=== PATIENT | male | born 1950 | race Caucasian/White ===

== ENCOUNTER 2017-04-01 14:27 | Emergency (ER) | payer MEDICARE, OTHER ==
[2017-04-01 14:33] VITALS: BP 116/83; RESP 18; O2SAT 97
[2017-04-01] MEDS ORDERED: Sodium Chloride 0.9% 1,000 ML IV STA (14:39)
--- NOTE | 2017-04-01 15:28 | ED PDOC ---
HPI: Back Time Seen by Provider: 04/01/17 14:38 Chief Complaint (Nursing): Back Pain Chief Complaint (Provider): backpain History Per: Patient Additional Complaint(s): 66yo M in ER for eval of acute lower back pain started yesterday without injury with associated fever chills and burning sensation with urination without vomiting headache dizziness hematuira rash abd pain chest pain or Shortness of breath Past Medical History Reviewed: Historical Data, Nursing Documentation, Vital Signs Vital Signs: Last Vital Signs Temp 102 F H 04/01/17 14:31 Pulse 114 H 04/01/17 14:31 Resp 18 04/01/17 14:31 BP 116/83 04/01/17 14:31 Pulse Ox 97 04/01/17 14:31 - Medical History PMH: No Chronic Diseases - Family History Family History: States: No Known Family Hx - Home Medications Home Medications: Ambulatory Orders Medication Instructions Recorded Ciprofloxacin [Cipro] 250 mg PO BID #14 tab 04/01/17 Tamsulosin HCl [Flomax] 0.4 mg PO DAILY #12 cap.er.24h 04/01/17 - Allergies Allergies/Adverse Reactions: Allergies Allergy/AdvReac Type Severity Reaction Status Date / Time No Known Allergies Allergy Verified 04/01/17 14:30 Review of Systems ROS Statement: Except As Marked, All Systems Reviewed And Found Negative Musculoskeletal: Positive for: Back Pain Physical Exam - Reviewed Nursing Documentation Reviewed: Yes Vital Signs Reviewed: Yes - Physical Exam Appears: Positive for: Non-toxic, No Acute Distress, Uncomfortable Head Exam: Positive for: ATRAUMATIC, NORMAL INSPECTION, NORMOCEPHALIC Skin: Positive for: Normal Color, Warm Cardiovascular/Chest: Positive for: Regular Rate, Rhythm Respiratory: Positive for: CNT, Normal Breath Sounds Gastrointestinal/Abdominal: Positive for: Normal Exam, Bowel Sounds, Soft. Negative for: Tenderness Back: Positive for: Normal Inspection, Other (no lesions no ertyehma). Negative for: L CVA Tenderness, R CVA Tenderness, Vertebral Tenderness Extremity: Positive for: Normal ROM Neurologic/Psych: Positive for: Alert, Oriented - Laboratory Results Result Diagrams: 04/01/17 15:59 04/01/17 15:59 Urine dip results: Positive for: Blood, Nitrate, Ketones - ECG O2 Sat by Pulse Oximetry: 97 - CT Scan/US ct abd Other Rad Studies (CT/US): Radiology Report Reviewed (NAD) - Progress ED Course And Treament: while in ER-pt unable to urinate despite 1 fluids bolus and PO intake of fluids. will do bladder scan to assess if pt is retaining. Orders Category Date Time Status ABD & PELVIS IV CONTRAST ONLY [CT] Stat CT 04/01/17 14:50 Ordered ELECTROCARDIOGRAM Stat Cardiology 04/01/17 14:39 Ordered COMP METABOLIC PANEL Stat Chem 04/01/17 14:39 Uncollected Lactic Acid [LACT ACID, PLASMA] Stat Chem 04/01/17 15:19 Uncollected EKG-ED [EDNURTX] STAT ED Care 04/01/17 14:40 Active CBC (WITH DIFFERENTIAL) Stat LUCY 04/01/17 14:39 Uncollected Acetaminophen [Tylenol 325mg tab] Med 04/01/17 14:39 Discontinued 650 mg PO STAT STA Ketorolac [Toradol] Med 04/01/17 14:39 Discontinued 30 mg IVP STAT STA Sodium Chloride 0.9% 1,000 ml Med 04/01/17 14:39 Active IV 1,000 mls/hr BLOOD CULTURE Stat Micro 04/01/17 14:39 Uncollected URINE CULTURE Stat Micro 04/01/17 14:39 Uncollected URINALYSIS Stat URINALYSIS 04/01/17 14:39 Uncollected Medical Decision Making Medical Decision Making: labs show elevated WBC, remaining labs are normal. elevated BUN-may indicated dehydration. normal Cr. PT received fluid bolus. UDip: blood, ketones-may indicate a passing of a renal stone pt will be treat with abx and flomax advised strongly to f.u with urologist. VS improved while in ED and pain controlled in ED. Temp Pulse Resp BP Pulse Ox 99.9 F H 83 18 116/83 97 04/01/17 17:10 04/01/17 17:10 04/01/17 14:31 04/01/17 14:31 04/01/17 18:43 04/01/17 04/01/17 04/01/17 15:59 15:59 15:59 WBC 14.7 H RBC 5.19 Hgb 14.1 Hct 43.2 MCV 83.2 MCH 27.2 MCHC 32.7 L RDW 16.2 H Plt Count 164 MPV 9.8 Neut % (Auto) 93.0 H Lymph % (Auto) 2.4 L [place] % (Auto) 4.3 Eos % (Auto) 0.0 Baso % (Auto) 0.3 Neut # 13.7 H Lymph # 0.4 L [place] # 0.6 Eos # 0.0 Baso # 0.0 Neutrophils % (Manual) 87 H Band Neutrophils % 4 H Lymphocytes % (Manual) 4 L Monocytes % (Manual) 5 Platelet Estimate Normal Large Platelets Present Anisocytosis (manual) Slight Sodium 139 Potassium 4.0 Chloride 102 Carbon Dioxide 25 Anion Gap 16 BUN 23 H Creatinine 1.4 Est GFR ( Amer) > 60 Est GFR (Non-Af Amer) 50 Random Glucose 120 H Lactic Acid 2.0 Calcium 9.4 Total Bilirubin 0.7 AST 21 ALT 33 Alkaline Phosphatase 65 Total Protein 7.9 Albumin 4.4 Globulin 3.5 Albumin/Globulin Ratio 1.2 Disposition - Clinical Impression Clinical Impression: Renal colic - Patient ED Disposition Is Patient to be Admitted: No Counseled Patient/Family Regarding: Studies Performed, Diagnosis, Need For Followup, Rx Given - Disposition Referrals: Saúl Rose Jr., MD [Staff Provider] - [facility] [Outside] [facility] [Outside] Disposition: Routine/Home Disposition Time: 19:55 Condition: STABLE Prescriptions: Ciprofloxacin [Cipro] 250 mg PO BID #14 tab Tamsulosin HCl [Flomax] 0.4 mg PO DAILY #12 cap.er.24h Instructions: Renal Colic (ED) Forms: [employer] ([place])
[2017-04-01 16:06] LABS: BASO % 0.3 % (0.0-2.0); HEMATOCRIT 43.2 % (35.0-51.0); LYMPH # 0.4 K/uL (1.0-4.3); LYMPH % 2.4 % (20.0-40.0); MEAN CELL VOLUME 83.2 fl (80.0-94.0); MEAN CORPUSCULAR HEMOGLOBIN 27.2 pg (27.0-31.0); MEAN CORPUSCULAR HGB CONC 32.7 g/dL (33.0-37.0); MEAN PLATELET VOLUME 9.8 fl (7.2-11.7); MONO # 0.6 K/uL (0.0-0.8); MONO % 4.3 % (0.0-10.0); NEUT # 13.7 K/uL (1.8-7.0); NRBC % 0.1 % (0.0-0.0); PLATELET COUNT 164 K/uL (130-400); RED CELL DISTRIBUTION WIDTH 16.2 % (11.5-14.5); WHITE BLOOD COUNT 14.7 K/uL (4.8-10.8)
[2017-04-01 16:33] LABS: ALB/GLOB RATIO 1.2 (1.0-2.1); ALKALINE PHOSPHATASE 65 U/L (38-126); ALT/SGPT 33 U/L (21-72); AST/SGOT 21 U/L (17-59); BILIRUBIN,TOTAL 0.7 mg/dl (0.2-1.3); BLOOD UREA NITROGEN 23 mg/dl (9-20); CALCIUM 9.4 mg/dL (8.4-10.2); CARBON DIOXIDE 25 mmol/L (22-30); CHLORIDE 102 mmol/L (98-107); GFR AFRICAN-AMERICAN > 60; GLUCOSE,RANDOM 120 mg/dL (75-110); SODIUM 139 mmol/l (132-148); TOTAL PROTEIN 7.9 G/DL (6.3-8.2)
[2017-04-01] MEDS ORDERED: Iohexol 300 100 ML IJ ONE (17:03)
[2017-04-01] MEDS ORDERED: Sodium Chloride 0.9% 50 ML IV ONE (17:03)
--- NOTE | 2017-04-01 17:35 | CT ---
PROCEDURE: CT Abdomen and Pelvis with contrast HISTORY: back pain with fever COMPARISON: None. TECHNIQUE: Contrast dose: 100 mL Omnipaque three hundred. Radiation dose: Total exam DLP = 1119.02 mGy-cm. This CT exam was performed using one or more of the following dose reduction techniques: Automated exposure control, adjustment of the mA and/or kV according to patient size, and/or use of iterative reconstruction technique. FINDINGS: LOWER THORAX: No evidence of acute pathology at the lung bases. LIVER: Low-attenuation 1.5 centimeter lesion at the liver dome may represent benign cyst measures fluid density. Otherwise the liver demonstrate homogeneous enhancement. GALLBLADDER AND BILE DUCTS: Unremarkable. PANCREAS: Unremarkable. No gross lesion or ductal dilatation. SPLEEN: Unremarkable. ADRENALS: Unremarkable. No mass. KIDNEYS AND URETERS: Unremarkable. No hydronephrosis. No solid mass. VASCULATURE: Unremarkable. No aortic aneurysm. BOWEL: Unremarkable. No obstruction. No gross mural thickening. Scattered colonic diverticulosis are seen without CT evidence of diverticulitis. Patient status post prior gastric sleeve surgery. APPENDIX: No evidence of appendicitis. PERITONEUM: Unremarkable. No free fluid. No free air. LYMPH NODES: Unremarkable. No enlarged lymph nodes. BLADDER: The urinary bladder is not distended therefore cannot be evaluated. REPRODUCTIVE: Unremarkable. BONES: No evidence of acute fracture or destructive bony lesion. Large osteophyte disc bulge complex noted at L5-S1. No evidence of fluid collection at the paraspinal region. OTHER FINDINGS: None. IMPRESSION: No evidence of acute pathology in the abdomen and pelvis. Severe degenerative changes and large osteophyte disc bulge complex noted at L5-S1.
[2017-04-01 17:37] LABS: NEUTROPHIL 87 % (42-75); TOTAL CELLS COUNTED 100
[2017-04-01 17:38] LABS: LARGE PLATELETS PRESENT
[2017-04-01 19:40] VITALS: PULSE 83; TEMP 99.9
[2017-04-01 20:18] LABS: RBC URINE 4 /hpf (0-3); URINE BILIRUBIN NEGATIVE (NEGATIVE); URINE BLOOD NEGATIVE (NEGATIVE); URINE COLOR AMBER (YELLOW); URINE GLUCOSE (UA) NEG (Normal); URINE KETONE NEGATIVE (NEGATIVE); URINE LEUKOCYTE ESTERASE NEG Leu/uL (Negative); URINE PROTEIN 100 mg/dL (NEGATIVE); URINE UROBILINOGEN 0.2-1.0 mg/dL (0.2-1.0); WBC URINE 5 /hpf (0-5)
== END 2017-04-01 20:45 | disposition home or self-care (01) ==
LOC: H.ER 14:27
DX: N23 Unspecified renal colic (principal)
CPT/HCPCS: 74177; 80053; 81003; 83605; 85025; 87040; 87086; 87149; 87181; 87205; 96374; 99282; J1885; J7040; Q9967

== ENCOUNTER 2017-04-03 13:10 | Observation (INO) | payer MEDICARE, OTHER ==
--- NOTE | 2017-04-03 13:34 | ED PDOC ---
HPI: Back Time Seen by Provider: 04/03/17 13:22 Chief Complaint (Nursing): Abnormal Labs History Per: Patient Onset/Duration Of Symptoms: Days (2) Current Symptoms Are (Timing): Still Present Quality Of Discomfort: Unable To Describe Severity: Moderate Pain Scale Rating Of: 3 Previous Symptoms: Back Pain Associated Symptoms: None Exacerbating Factor(s): Movement Additional Complaint(s): Low Back pain, non-radiating assoc with fever. seen here 2days ago, CT bad neg. Blood c&s positive for staph. Pt denies fever or chills today. denies cough or urinary sxs. Past Medical History Vital Signs: Last Vital Signs Temp 98.1 F 04/03/17 13:15 Pulse 95 H 04/03/17 13:15 Resp 18 04/03/17 13:15 BP 142/82 04/03/17 13:15 Pulse Ox 98 04/03/17 13:15 - Medical History PMH: No Chronic Diseases - Family History Family History: States: Unknown Family Hx - Home Medications Home Medications: Ambulatory Orders Medication Instructions Recorded Ciprofloxacin [Cipro] 250 mg PO BID #14 tab 04/01/17 Tamsulosin HCl [Flomax] 0.4 mg PO DAILY #12 cap.er.24h 04/01/17 - Allergies Allergies/Adverse Reactions: Allergies Allergy/AdvReac Type Severity Reaction Status Date / Time No Known Allergies Allergy Verified 04/03/17 13:48 Review of Systems ROS Statement: Except As Marked, All Systems Reviewed And Found Negative Constitutional: Positive for: Fever, Chills Respiratory: Negative for: Cough Genitourinary Male: Negative for: Dysuria, Frequency Musculoskeletal: Positive for: Back Pain Physical Exam - Reviewed Nursing Documentation Reviewed: Yes Vital Signs Reviewed: Yes - Physical Exam Appears: Positive for: Non-toxic, No Acute Distress Head Exam: Positive for: ATRAUMATIC, NORMAL INSPECTION, NORMOCEPHALIC Skin: Positive for: Normal Color, Warm, DRY Eye Exam: Positive for: EOMI, Normal appearance, PERRL ENT: Positive for: Normal ENT Inspection Neck: Positive for: Normal, Painless ROM Cardiovascular/Chest: Positive for: Regular Rate, Rhythm Respiratory: Positive for: CNT, Normal Breath Sounds Gastrointestinal/Abdominal: Positive for: Normal Exam, Bowel Sounds, Soft Back: Positive for: Normal Inspection. Negative for: L CVA Tenderness, R CVA Tenderness Extremity: Positive for: Normal ROM Neurologic/Psych: Positive for: Alert, Oriented. Negative for: Motor/Sensory Deficits - Laboratory Results Result Diagrams: 04/03/17 13:40 04/03/17 13:40 - ECG O2 Sat by Pulse Oximetry: 98 Disposition - Clinical Impression Clinical Impression: Bacteremia - Patient ED Disposition Is Patient to be Admitted: Yes - Disposition Disposition Time: 14:27 Condition: FAIR Forms: [employer] ([place]ic) - Pt Status Changed To: Hospital Disposition Of: Observation - POA Present On Arrival: None
[2017-04-03 14:00] LABS: VENOUS BLOOD GAS BASE EXCESS 0.2 mmol/L (0.0-2.0); VENOUS BLOOD GAS PCO2 33 mmHg (40-60); VENOUS BLOOD PH 7.46 (7.32-7.43)
[2017-04-03 14:12] LABS: BASO % 0.1 % (0.0-2.0); HEMATOCRIT 38.9 % (35.0-51.0); LYMPH # 0.4 K/uL (1.0-4.3); LYMPH % 4.7 % (20.0-40.0); MEAN CELL VOLUME 82.4 fl (80.0-94.0); MEAN CORPUSCULAR HEMOGLOBIN 27.4 pg (27.0-31.0); MEAN CORPUSCULAR HGB CONC 33.3 g/dL (33.0-37.0); MEAN PLATELET VOLUME 10.4 fl (7.2-11.7); MONO # 0.6 K/uL (0.0-0.8); MONO % 7.6 % (0.0-10.0); NEUT # 6.5 K/uL (1.8-7.0); NEUT % 87.6 % (50.0-75.0); RED CELL DISTRIBUTION WIDTH 16.7 % (11.5-14.5); WHITE BLOOD COUNT 7.4 K/uL (4.8-10.8)
[2017-04-03 14:22] LABS: ALB/GLOB RATIO 1.1 (1.0-2.1); ALKALINE PHOSPHATASE 56 U/L (38-126); ALT/SGPT 43 U/L (21-72); AST/SGOT 26 U/L (17-59); BILIRUBIN,TOTAL 0.5 mg/dl (0.2-1.3); BLOOD UREA NITROGEN 26 mg/dl (9-20); CARBON DIOXIDE 23 mmol/L (22-30); CHLORIDE 103 mmol/L (98-107); GFR AFRICAN-AMERICAN > 60; GLUCOSE,RANDOM 128 mg/dL (75-110); POTASSIUM 3.8 MMOL/L (3.6-5.0); SODIUM 137 mmol/l (132-148)
--- NOTE | 2017-04-03 14:23 | CP.PCM.HP ---
History of Present Illness - History of Present Illness History of Present Illness: Chief Complaint: called by ER for positive blood cultures HPI: 66M no past medical history presented two days ago to the emergency room for a 1 -day hx of mod-severe sharp worsening back pain likely secondary to degenerative changes and osteophyte L5-S1. At that time pt urine and blood cultures evaluated, urine neg, blood cultures were positive for staph aureus and was called back to come to ER. Pt denies any URI symptoms, urinary symptoms , abdominal pain, diarrhea, headache, no stigmata of endocarditis or clinical sx of pericarditis or myocarditis, CT abd neg, and is afebrile. WBC was 14.7 with 4 bands 2 days ago. Pt was discharged on Cipro. Repeat blood cultures obtained in ER prior to administration of Vancomycin. Continues to be afebrile, lactate 1.6. HD stable, NAD. Repeat blood cultures, cover with Vancomycin, monitor for fever, leukocytosis. ROS: as per HPI, all other systems reviewed and negative by me PMH: denies PSH: gastic sleeve Dec 2016 Family History: denies Social History: denies tobacco, ETOH, illicit drug use Home Medications: as below Allergies: NKDA FULL CODE Surrogate Decision Maker: , Susan Vivar [phone] Vitals reviewed Constitutional- morbidly obese, cooperative, awake, alert. Head- NCAT, PERRL Eye- PERRL, normal accommodation ENT- normal exam, MMM. Neck- normal inspection, supple, no JVD Respiratory- CTAB, no wheezes rales rhonchi Cardiovascular- RRR, +S1, +S2 no MRG GI/Abdominal- normal bowel sounds, soft Skin- warm, dry Extremities Exam- normal capillary refill, normal inspection Neurological Exam- alert, oriented Psych- normal mood, normal affect Labs: 04/03/17 13:40 04/03/17 13:40 Imaging Studies: CT ABD PELVIS neg 2 days ago Assessment and Plan: 66M no past medical history presented two days ago to the emergency room for a 1 -day hx of mod-severe sharp worsening back pain likely secondary to degenerative changes and osteophyte L5-S1. At that time pt urine and blood cultures evaluated, urine neg, blood cultures were positive for staph aureus and was called back to come to ER. Pt denies any URI symptoms, urinary symptoms , abdominal pain, diarrhea, headache, no stigmata of endocarditis or clinical sx of pericarditis or myocarditis, CT abd neg, and is afebrile. WBC was 14.7 with 4 bands 2 days ago. Pt was discharged on Cipro. Repeat blood cultures obtained in ER prior to administration of Vancomycin. Continues to be afebrile, lactate 1.6. HD stable, NAD. Repeat blood cultures, cover with Vancomycin, monitor for fever, leukocytosis. Bacteremia blood cx + staph aureus pt febrile 2 days ago with wbc 14.7 bands 4 today no WBC and afebrile, was sent home on Cipro ER visit 2 days ago repeat BCx2, monitor for fever, WBC pt denies URI sx, urinary sx, abd pain, diarrhea, stigmata of endocarditis, no headache or malaise or subjective fevers cover with Vancomycin 1 gm q12H Back Pain CT + degenerative changes L5-S1 Ibuprofen VTE ppx Lovenox Present on Admission - Present on Admission Any Indicators Present on Admission: No Past Patient History - Past Social History Smoking Status: Never Smoked - PSYCHIATRIC Hx Substance Use: No - ANESTHESIA Hx Anesthesia: No Meds Allergies/Adverse Reactions: Allergies Allergy/AdvReac Type Severity Reaction Status Date / Time No Known Allergies Allergy Verified 04/03/17 13:48 Results - Vital Signs Recent Vital Signs: Last Vital Signs Temp 98.1 F 04/03/17 13:15 Pulse 95 H 04/03/17 13:15 Resp 18 04/03/17 13:15 BP 142/82 04/03/17 13:15 Pulse Ox 98 04/03/17 13:36 - Labs Result Diagrams: 04/03/17 13:40 04/03/17 13:40 Labs: Laboratory Results - last 24 hr 04/03/17 04/03/17 04/03/17 13:30 13:40 13:40 WBC 7.4 RBC 4.72 Hgb 13.0 Hct 38.9 MCV 82.4 MCH 27.4 MCHC 33.3 RDW 16.7 H Plt Count 124 L D MPV 10.4 Neut % (Auto) 87.6 H Lymph % (Auto) 4.7 L [place] % (Auto) 7.6 Eos % (Auto) 0.0 Baso % (Auto) 0.1 Neut # 6.5 Lymph # 0.4 L [place] # 0.6 Eos # 0.0 Baso # 0.0 pO2 63 H VBG pH 7.46 H VBG pCO2 33 L VBG HCO3 25.0 VBG Total CO2 24.5 VBG O2 Sat (Calc) 97.1 H VBG Base Excess 0.2 VBG Potassium 3.8 A-a O2 Difference 45.0 Sodium 132.0 137 Chloride 102.0 103 Glucose 130 H Lactate 1.6 FiO2 21.0 Potassium 3.8 Carbon Dioxide 23 Anion Gap 15 BUN 26 H Creatinine 1.2 Est GFR ( Amer) > 60 Est GFR (Non-Af Amer) > 60 Random Glucose 128 H Calcium 9.0 Total Bilirubin 0.5 AST 26 ALT 43 Alkaline Phosphatase 56 Total Protein 7.0 Albumin 3.6 Globulin 3.4 Albumin/Globulin Ratio 1.1 Venous Blood Potassium 3.8
--- NOTE | 2017-04-03 14:25 | CARD ---
APPROVED REPORT EKG Measurement Heart [id number] <Conclusion> Normal sinus rhythm Anterior infarct, age undetermined Abnormal ECG
[2017-04-03] MEDS ORDERED: Vancomycin 1 g Inj ONE (14:37)
--- NOTE | 2017-04-03 17:05 | RAD ---
HISTORY: back pain COMPARISON: No prior. TECHNIQUE: Chest PA and lateral FINDINGS: LUNGS: No active pulmonary disease. PLEURA: No significant pleural effusion identified. No pneumothorax apparent. CARDIOVASCULAR: Normal. OSSEOUS STRUCTURES: No significant abnormalities. VISUALIZED UPPER ABDOMEN: Normal. OTHER FINDINGS: None. IMPRESSION: No active disease.
[2017-04-03] MEDS ORDERED: Pneumococcal 23-Valent Vaccine IM ONE (20:53)
[2017-04-03] MEDS ORDERED: Influenza Vaccine 18yr & older 0.5 ML/45 MCG SYR IM ONE (21:00)
[2017-04-03] MEDS ORDERED: POLYETHYLENE GLYCOL 3350 17 GM/Dose PACKET PO STA (21:05)
[2017-04-04 06:34] LABS: BLOOD UREA NITROGEN 24 mg/dl (9-20); CALCIUM 8.7 mg/dL (8.4-10.2); CARBON DIOXIDE 25 mmol/L (22-30); CHLORIDE 107 mmol/L (98-107); GFR AFRICAN-AMERICAN > 60; GLUCOSE,RANDOM 109 mg/dL (75-110); POTASSIUM 3.8 MMOL/L (3.6-5.0); SODIUM 140 mmol/l (132-148)
[2017-04-04 08:11] VITALS: BP 155/76; PULSE 75; RESP 20; TEMP 97.9; O2SAT 96
[2017-04-04] MEDS ORDERED: Enoxaparin 40 mg Syringe SC SCH (09:00)
[2017-04-04] MEDS ORDERED: Sodium Chloride 0.9% 1,000 ML IV SCH (09:30)
[2017-04-04 09:40] LABS: BASO % 0.3 % (0.0-2.0); EOS % 0.5 % (0.0-4.0); HEMATOCRIT 39.4 % (35.0-51.0); LYMPH # 0.6 K/uL (1.0-4.3); LYMPH % 9.8 % (20.0-40.0); MEAN CELL VOLUME 83.9 fl (80.0-94.0); MEAN CORPUSCULAR HEMOGLOBIN 26.7 pg (27.0-31.0); MEAN CORPUSCULAR HGB CONC 31.8 g/dL (33.0-37.0); MEAN PLATELET VOLUME 10.7 fl (7.2-11.7); MONO # 0.8 K/uL (0.0-0.8); NEUT % 77.4 % (50.0-75.0); RED CELL DISTRIBUTION WIDTH 16.5 % (11.5-14.5); WHITE BLOOD COUNT 6.5 K/uL (4.8-10.8)
--- NOTE | 2017-04-04 11:37 | CP.PCM.DIS ---
Provider - Provider Date of Admission: 04/03/17 14:22 Attending physician: Sofia Howe DO Time Spent in preparation of Discharge (in minutes): 30 Diagnosis - Discharge Diagnosis (1) Bacteremia Status: Acute Hospital Course - Lab Results Lab Results: Most Recent Lab Values WBC 6.5 K/uL (4.8-10.8) 04/04/17 09:33 RBC 4.70 Mil/uL (4.40-5.90) 04/04/17 09:33 Hgb 12.5 g/dL (12.0-18.0) 04/04/17 09:33 Hct 39.4 % (35.0-51.0) 04/04/17 09:33 MCV 83.9 fl (80.0-94.0) 04/04/17 09:33 MCH 26.7 pg (27.0-31.0) L 04/04/17 09:33 MCHC 31.8 g/dL (33.0-37.0) L 04/04/17 09:33 RDW 16.5 % (11.5-14.5) H 04/04/17 09:33 Plt Count 128 K/uL (130-400) L 04/04/17 09:33 MPV 10.7 fl (7.2-11.7) 04/04/17 09:33 Neut % (Auto) 77.4 % (50.0-75.0) H 04/04/17 09:33 Lymph % (Auto) 9.8 % (20.0-40.0) L 04/04/17 09:33 [place] % (Auto) 12.0 % (0.0-10.0) H 04/04/17 09:33 Eos % (Auto) 0.5 % (0.0-4.0) 04/04/17 09:33 Baso % (Auto) 0.3 % (0.0-2.0) 04/04/17 09:33 Neut # 5.0 K/uL (1.8-7.0) 04/04/17 09:33 Lymph # 0.6 K/uL (1.0-4.3) L 04/04/17 09:33 [place] # 0.8 K/uL (0.0-0.8) 04/04/17 09:33 Eos # 0.0 K/uL (0.0-0.7) 04/04/17 09:33 Baso # 0.0 K/uL (0.0-0.2) 04/04/17 09:33 pO2 63 mm/Hg (30-55) H 04/03/17 13:30 VBG pH 7.46 (7.32-7.43) H 04/03/17 13:30 VBG pCO2 33 mmHg (40-60) L 04/03/17 13:30 VBG HCO3 25.0 mmol/L 04/03/17 13:30 VBG Total CO2 24.5 mmol/L (22-28) 04/03/17 13:30 VBG O2 Sat (Calc) 97.1 % (40-65) H 04/03/17 13:30 VBG Base Excess 0.2 mmol/L (0.0-2.0) 04/03/17 13:30 VBG Potassium 3.8 mmol/L (3.6-5.2) 04/03/17 13:30 A-a O2 Difference 45.0 mm/Hg 04/03/17 13:30 Sodium 132.0 mmol/L (132-148) 04/03/17 13:30 Chloride 102.0 mmol/L (98-107) 04/03/17 13:30 Glucose 130 mg/dL (75-110) H 04/03/17 13:30 Lactate 1.6 mmol/L (0.7-2.1) 04/03/17 13:30 FiO2 21.0 % 04/03/17 13:30 Sodium 140 mmol/l (132-148) 04/04/17 05:25 Potassium 3.8 MMOL/L (3.6-5.0) 04/04/17 05:25 Chloride 107 mmol/L (98-107) 04/04/17 05:25 Carbon Dioxide 25 mmol/L (22-30) 04/04/17 05:25 Anion Gap 12 (10-20) 04/04/17 05:25 BUN 24 mg/dl (9-20) H 04/04/17 05:25 Creatinine 1.1 mg/dl (0.8-1.5) 04/04/17 05:25 Est GFR ( Amer) > 60 04/04/17 05:25 Est GFR (Non-Af Amer) > 60 04/04/17 05:25 Random Glucose 109 mg/dL (75-110) 04/04/17 05:25 Calcium 8.7 mg/dL (8.4-10.2) 04/04/17 05:25 Total Bilirubin 0.5 mg/dl (0.2-1.3) 04/03/17 13:40 AST 26 U/L (17-59) 04/03/17 13:40 ALT 43 U/L (21-72) 04/03/17 13:40 Alkaline Phosphatase 56 U/L (38-126) 04/03/17 13:40 Total Protein 7.0 G/DL (6.3-8.2) 04/03/17 13:40 Albumin 3.6 g/dL (3.5-5.0) 04/03/17 13:40 Globulin 3.4 gm/dL (2.2-3.9) 04/03/17 13:40 Albumin/Globulin Ratio 1.1 (1.0-2.1) 04/03/17 13:40 Venous Blood Potassium 3.8 mmol/L (3.6-5.2) 04/03/17 13:30 Vancomycin Trough 11.9 ug/mL (5.0-10.0) H 04/04/17 05:25 Urine Opiates Screen Negative (NEGATIVE) 04/03/17 15:42 Urine Methadone Screen Negative (NEGATIVE) 04/03/17 15:42 Ur Barbiturates Screen Negative (NEGATIVE) 04/03/17 15:42 Ur Phencyclidine Scrn Negative (NEGATIVE) 04/03/17 15:42 Ur Amphetamines Screen Negative (NEGATIVE) 04/03/17 15:42 U Benzodiazepines Scrn Negative (NEGATIVE) 04/03/17 15:42 U Oth Cocaine Metabols Negative (NEGATIVE) 04/03/17 15:42 U Cannabinoids Screen Negative (NEGATIVE) 04/03/17 15:42 - Hospital Course Hospital Course: : 66M no past medical history presented two days ago to the emergency room for a 1 -day hx of mod-severe sharp worsening back pain likely secondary to degenerative changes and osteophyte L5-S1. At that time pt urine and blood cultures evaluated, urine neg, blood cultures were positive for staph aureus and was called back to come to ER. Pt denies any URI symptoms, urinary symptoms , abdominal pain, diarrhea, headache, no stigmata of endocarditis or clinical sx of pericarditis or myocarditis, CT abd neg, and is afebrile. WBC was 14.7 with 4 bands 2 days ago. Pt was discharged on Cipro. Repeat blood cultures obtained in ER prior to administration of Vancomycin. Continues to be afebrile, lactate 1.6. HD stable, NAD. Repeat blood cultures, cover with Vancomycin, monitor for fever, leukocytosis. Cultures sensitive to CIPRO, will d/c to cover 2 weeks for bacteremia as patient is afebrile, no WBC. Stable for discharge home/ Bacteremia blood cx + staph aureus pt febrile 2 days ago with wbc 14.7 bands 4 today no WBC and afebrile, was sent home on Cipro ER visit 2 days ago repeat BCx2, monitor for fever, WBC pt denies URI sx, urinary sx, abd pain, diarrhea, stigmata of endocarditis, no headache or malaise or subjective fevers cover with Vancomycin 1 gm q12H Back Pain CT + degenerative changes L5-S1 Ibuprofen Discharge Exam - Head Exam Head Exam: ATRAUMATIC, NORMAL INSPECTION, NORMOCEPHALIC Additional comments: Physical exam: Constitutional- cooperative, awake, alert. Head- NCAT, PERRL Eye- PERRL, normal accommodation ENT- normal exam, MMM. Neck- normal inspection, supple, no JVD Respiratory- CTAB, no wheezes rales rhonchi Cardiovascular- RRR, +S1, +S2 no MRG GI/Abdominal- normal bowel sounds, soft, no mass, no hsm Skin- warm, dry Extremities Exam- normal capillary refill, normal inspection Neurological Exam- alert, stable gait Psych- normal mood, normal affect Discharge Plan - Discharge Medications Prescriptions: Ciprofloxacin [Cipro] 500 mg PO Q12 #28 tab - Follow Up Plan Condition: FAIR Disposition: HOME/ ROUTINE Additional Instructions: patient follow-up with primary care physician in one week. To return to ER if symptoms worsen or return.
[2017-04-04] MEDS ORDERED: Pneumococcal 23-Valent Vaccine IM ONE (21:00)
== END 2017-04-04 14:30 | disposition home or self-care (01) ==
LOC: H.ER 13:10 → H.ERHOLD 14:22 → H.MEDSURG1 16:08
PROVIDERS: ADMIT Student in an Organized Health Care Education/Training Program; ATTEND Student in an Organized Health Care Education/Training Program
DX: R78.81 Bacteremia (principal); B95.61 Methicillin susceptible Staphylococcus aureus infection as the cause of diseases classified elsewhere; M54.9 Dorsalgia, unspecified; M51.37 Other intervertebral disc degeneration, lumbosacral region; Z23 Encounter for immunization
CPT/HCPCS: 36415; 71020; 80048; 80053; 80202; 82803; 85025; 87040; 87086; 87149; 87205; 90732; 93005; 96365; 96366; 99284; G0008; G0009; G0378; G0480; J1650; J7040; Q2035